=== PATIENT | female | born 1980 | race Caucasian/White ===

== ENCOUNTER → 2016-12-31 13:48 | Emergency (ER) | payer OTHER ==
[2016-12-31 13:52] VITALS: BP 124/76
--- NOTE | 2016-12-31 15:25 | ED ---
Lower Extremity - HPI Summary HPI Summary: 36F presents with left calf swelling for a day. 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 She feels a ball in her calf that she is concerned is a blood clot. She is not a smoker, no recent travel, surgeries , family history of blood clots. she denies any fever or spreading redness. She denies any trauma to the area. She denies any pain and she is able ambulate. - History of Current Complaint Chief Complaint: EDExtremityLower Stated Complaint: LEFT LEG INJURY Time Seen by Provider: 12/31/16 14:21 Pain Intensity: 0 - Allergies/Home Medications Allergies/Adverse Reactions: Allergies Allergy/AdvReac Type Severity Reaction Status Date / Time No Known Allergies Allergy Verified 12/31/16 13:55 PMH/Surg Hx/FS Hx/Imm Hx Endocrine/Hematology History: Denies: Hx Anticoagulant Therapy Cardiovascular History: Denies: Hx Hypertension Psychiatric History: Reports: Hx Depression Denies: Other Psychiatric Issues/Disorders - Pt's Father diagnosed w/ Schizophrenia Infectious Disease History: No Infectious Disease History: Denies: Traveled Outside the [place] in Last 30 Days - Family History Known Family History: Negative: Blood Disorder - Social History Alcohol Use: None Substance Use Type: Reports: None Smoking Status (MU): Never Smoked Tobacco Have You Smoked in the Last Year: No Review of Systems Negative: Fever Negative: Chest Pain Negative: Shortness Of Breath Positive: Edema - left calf All Other Systems Reviewed And Are Negative: Yes Physical Exam Triage Information Reviewed: Yes Vital Signs On Initial Exam: Initial Vitals Temp Pulse Resp BP Pulse Ox 97.9 F 69 16 124/76 100 12/31/16 13:51 12/31/16 13:51 12/31/16 13:51 12/31/16 13:51 12/31/16 13:51 Vital Signs Reviewed: Yes Appearance: Positive: Well-Appearing Skin: Positive: Warm, Dry Head/Face: Positive: Normal Head/Face Inspection Eyes: Positive: Normal, EOMI, Conjunctiva Clear Respiratory/Lung Sounds: Positive: Clear to Auscultation, Breath Sounds Present Cardiovascular: Positive: Normal, RRR Musculoskeletal: Positive: Strength/ROM Intact - left calf, Other - good pulses , small palpable mass felt in left calf that does not appear infectious, feels more like muscle Diagnostics - Vital Signs Vital Signs Temp Pulse Resp BP Pulse Ox 12/31/16 13:52 97.9 F 67 16 124/76 100 12/31/16 13:51 97.9 F 69 16 124/76 100 - Laboratory Lab Statement: Any lab studies that have been ordered have been reviewed, and results considered in the medical decision making process. - Ultrasound No standard instances Ultrasound Interpretation: Positive (See Comments) - IMPRESSION: SOFT TISSUE SWELLING, OTHERWISE UNREMARKABLE STUDY. IF THE PATIENT'S PALPABLE ABNORMALITY PERSISTS CONSIDER MR IMAGING. Ultrasound Interpretation Completed By: Radiologist Lower Extremity Course/Dx - Course Course Of Treatment: 36F presents with left calf swelling for a day. 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 She has no risk factors for DVT. she denies any fever or spreading redness. She denies any trauma to the area. on exam tight possible muscular mass felt with no rash or warmth to area so do not suspect infection. u/s shows no abscess or DVT. told to follow up with primary. patient understands and agrees with plan - Diagnoses Differential Diagnosis/HQI/PQRI: Positive: Cellulitis, DVT, Sprain, Strain Provider Diagnoses: Swelling of left lower extremity Discharge - Discharge Plan Condition: Good Disposition: HOME Referrals: No Primary Care Phys,NOPCP [Primary Care Provider] - Additional Instructions: Area is not infectious or a blood clot Apply ice and massage area Take ibuprofen for pain as needed Follow up with primary within 5 days if no improvement Return to ED if develop any new or worsening symptoms
--- NOTE | 2016-12-31 16:04 | RAD ---
INDICATION: Left calf mass. COMPARISON: There are no prior studies available for comparison. TECHNIQUE: Multiple real-time images of the left calf were obtained. FINDINGS: There is edema in the superficial soft tissues of the left calf. No mass or fluid collection is seen. IMPRESSION: SOFT TISSUE SWELLING, OTHERWISE UNREMARKABLE STUDY. IF THE PATIENT'S PALPABLE ABNORMALITY PERSISTS CONSIDER MR IMAGING.
== END | disposition home or self-care (01) ==
LOC: ED 13:48
DX: M79.89 Other specified soft tissue disorders (principal)
CPT/HCPCS: 99281

== ENCOUNTER 2019-01-11 06:00 | Inpatient (IN) | payer OTHER ==
[~2019-01-11 06:00] MED LIST: ceFOXitin(*) 2 GM in NS 0.9% 100 ML* 100 ML IVPB SCH
[2019-01-11] MEDS ORDERED: FLUID ONE (06:42)
[2019-01-11] MEDS ORDERED: NS 0.9% ONE (06:42)
[2019-01-11] MEDS ORDERED: Sodium Citrate/Citric Acid* 15 ML UDC PO ONE (06:56)
[2019-01-11] MEDS ORDERED: Buffered Lidocaine 1% SYRIN* 1 ML/SYRINGE INTRADERM ONE (06:56)
[2019-01-11] MEDS ORDERED: Lactated Ringers 1000 ML Bag* 1,000 ML IV SCH ×2 (07:00→10:00)
[2019-01-11] MEDS ORDERED: Morphine PF AMP (0.5MG/ML)* 5 MG/10 ML AMP ONE (07:11)
[2019-01-11] MEDS ORDERED: fentaNYL* 50 MCG/ML 2 ML VIAL (100 MCG VIAL) ONE ×2 (08:37→09:07)
[2019-01-11] MEDS ORDERED: Midazolam* 1 MG/ML 2 ML VIAL (2 MG) ONE (08:43)
[2019-01-11] MEDS ORDERED: Naloxone* 0.4 MG/ML 1 ML VIAL IV PRN ×2 (08:48)
[2019-01-11] MEDS ORDERED: oxyCODONE/Acetamin 5/325 MG* TAB PO PRN (08:48)
[2019-01-11] MEDS ORDERED: diPHENhydraMINE IV* 50 MG/ML 1 ml VIAL (BENADRYL) IV PRN (08:48)
[2019-01-11] MEDS ORDERED: Acetaminophen TAB* 325 MG PO PRN (08:48)
[2019-01-11] MEDS ORDERED: HYDROmorphone INJ1* 1 MG/ML SYRINGE IV PRN (08:48)
[2019-01-11] MEDS ORDERED: Nalbuphine* 10 MG/ML 1 ML VIAL IV PRN (08:48)
[2019-01-11] MEDS ORDERED: Ondansetron INJ* 2 MG/ML VIAL IV PRN (08:48)
[2019-01-11] MEDS ORDERED: fentaNYL* 50 MCG/ML 2 ML VIAL (100 MCG VIAL) IV PRN (08:48)
[2019-01-11] MEDS ORDERED: KETAMINE HCL* 50 MG/ML 10 ML VIAL ONE (08:56)
[2019-01-11] MEDS ORDERED: Propofol* 10 MG/ML 20 ML BTL ONE (09:03)
[2019-01-11] MEDS ORDERED: Witch Hazel PAD* JAR TOPICAL PRN (09:53)
[2019-01-11] MEDS ORDERED: RHO D Immune Globulin (HUMAN)* 300 MCG = 1,500 I.U. INJ IM ONE (09:53)
[2019-01-11] MEDS: Ketorolac INJ* 30 MG/ML 1 ML VIAL IV PRN ×2 (12:04→18:11)
[2019-01-11] MEDS: Simethicone TAB* 80 MG TAB.CHEW PO SCH ×3 (14:52→21:26)
[2019-01-11] MEDS: Docusate CAP* 100 MG PO SCH ×2 (14:53→21:26)
[2019-01-12] MEDS: Ketorolac INJ* 30 MG/ML 1 ML VIAL IV PRN ×2 (00:25→06:23)
[2019-01-12] MEDS ORDERED: oxyCODONE/Acetamin 5/325 MG* TAB PO PRN ×2 (01:00)
[2019-01-12 05:56] LABS: ABS Basophils 0.1 10^3/ul (0-0.2); ABS Eosinophils 0.1 10^3/ul (0-0.6); ABS Lymphocytes 1.3 10^3/ul (1.0-4.8); ABS Monocytes 0.8 10^3/ul (0-0.8); ABS Neutrophils 12.2 10^3/ul (1.5-7.7); Eosinophil % 0.6 %; Hematocrit 33 % (35-47); Lymphocyte % 9.1 %; Mean Corpuscular HGB Conc 34 g/dL (31-36); Mean Corpuscular Hemoglobin 32 pg (27-31); Mean Corpuscular Volume 94 fL (80-97); Mean Platelet Volume 9.7 fL (7.4-10.4); Platelet Count 157 10^3/uL (150-450); Red Blood Count 3.48 10^6 /uL (3.70-4.87); Red Cell Distribution Width 13 % (10-15); White Blood Count 14.4 10^3/uL (3.5-10.8)
[2019-01-12] MEDS: Docusate CAP* 100 MG PO SCH ×3 (08:58→21:23)
[2019-01-12] MEDS: Simethicone TAB* 80 MG TAB.CHEW PO SCH ×4 (08:58→21:23)
[2019-01-12] MEDS ORDERED: Ferrous Gluconate TAB* 324 MG TAB PO SCH (09:00)
--- NOTE | 2019-01-12 10:09 | OP ---
DATE OF OPERATION: 01/11/19 - ROOM #105 DATE OF : 80 SURGEON: Donnie Cuevas MD [facility] ARTIST: Meg Ren CNM ANESTHESIOLOGIST: Dr. Castanon. ANESTHESIA: Spinal. PRE-OP DIAGNOSES: Thirty nine plus one week gestation with history of previous C- section and satisfied parity. POST-OP DIAGNOSES: Thirty nine plus one week gestation with history of previous C- section and satisfied parity. OPERATIVE PROCEDURE: Repeat low transverse section and bilateral tubal ligation. ESTIMATED BLOOD LOSS: 600 cc. URINE OUTPUT: 1100 cc. IV FLUIDS: 1300 cc lactated Ringer's. MATERIALS TO LAB: Cord blood. INDICATIONS: This patient is a 38-year-old 3 para 2 who presented today for repeat section. The patient also had expressed a strong desire for permanent sterilization, so bilateral tubal ligation was also planned. She was extensively counseled and consent was signed. FINDINGS: Normal appearing uterus, fallopian tubes and ovaries. Delivery was productive of a female weighing 6 pounds 11 ounces with Apgars 9 and 9. Time of delivery was 0842. COMPLICATIONS: None. DESCRIPTION OF PROCEDURE: The risks, benefits, and alternatives were described to the patient, and informed consent was obtained. The patient was taken to the operating room with IV running, where spinal anesthesia was induced and found to be adequate. The patient was prepped and draped in normal sterile fashion in the dorsal supine position with a leftward tilt. A Pfannenstiel skin incision was made with a scalpel through the patient's previous incision. This was carried down to the underlying fascia using the scalpel. The fascia was scored in the midline, and the incision was extended using Joseph scissors. The fascia was dissected off the underlying rectus muscles using blunt and sharp dissection. The rectus muscles were in the midline using dissection with a Paloma clamp. The peritoneum was then entered sharply. A bladder blade was placed. A bladder flap was created sharply using Metzenbaum scissors. A low transverse uterine incision was then made with the scalpel. This was carried down to the amniotic membranes. The membranes were then ruptured, productive of clear fluid. The uterine incision was extended using blunt traction. The head was elevated to the level of the incision, and, with fundal pressure, the head delivered without difficulty. The shoulders then were also both delivered and the body followed. The infant had excellent tone and cried immediately on delivery. The cord was doubly clamped and cut. The was then handed to the awaiting deputy juvenile officer. Cord blood was collected. The placenta was delivered with manual extraction. The uterus was then exteriorized and cleared of all clots and debris. The uterine incision was then reapproximated using 0 Vicryl in a running-locked fashion. A second layer of imbricating 0 Vicryl sutures was then also placed for good hemostasis. The posterior cul-de-sac was irrigated with saline. The right Fallopian tube was then elevated with a Peggy clamp and a long Paloma clamp was used to clamp off the distal half of the tube. This was tied off with 3-0 Vicryl. A second 3-0 Vicryl suture was then also placed. The tube segment was then excised with Metzenbaum scissors with good hemostasis. The same was performed on the left, again with good hemostasis. The uterus was then returned to the abdomen. The incision was reinspected and still noted to be hemostatic. The peritoneum was closed with 3-0 Vicryl in a running fashion. The fascia was closed with 0 Vicryl in a running fashion. The subcutaneous tissues were copiously irrigated and made hemostatic using the Bovie. The subcutaneous tissues were then reapproximated using 3-0 Vicryl in interrupted sutures. The skin was then closed with 4-0 Monocryl in a subcuticular stitch. Mastisol and steristrips were then applied. A sterile bandage was then placed over the incision. The patient tolerated the procedure well. Sponge, lap, and needle counts were correct x2. [id number]/[facility] #: [id number] [facility]
[2019-01-12] MEDS: Ibuprofen TAB* 600 MG PO PRN ×2 (12:25→18:10)
[2019-01-12] MEDS: Acetaminophen TAB* 325 MG PO PRN (19:23)
[2019-01-13] MEDS: Acetaminophen TAB* 325 MG PO PRN ×3 (00:11→19:28)
[2019-01-13] MEDS: Ibuprofen TAB* 600 MG PO PRN ×4 (00:11→19:28)
[2019-01-13] MEDS: Simethicone TAB* 80 MG TAB.CHEW PO SCH ×4 (09:05→21:45)
[2019-01-13] MEDS: Docusate CAP* 100 MG PO SCH ×3 (09:05→21:45)
[2019-01-14] MEDS: Acetaminophen TAB* 325 MG PO PRN (03:06)
[2019-01-14] MEDS: Ibuprofen TAB* 600 MG PO PRN ×2 (03:07→10:21)
[2019-01-14] MEDS: Simethicone TAB* 80 MG TAB.CHEW PO SCH (07:44)
[2019-01-14] MEDS: Docusate CAP* 100 MG PO SCH (07:44)
[2019-01-14 08:14] VITALS: BP 115/77
== END 2019-01-14 12:00 | disposition home or self-care (01) | DRG 540 ==
LOC: MCHOB 06:00
PROVIDERS: ADMIT Obstetrics & Gynecology; ATTEND Obstetrics & Gynecology
PROC: 0UB70ZZ Excision of Bilateral Fallopian Tubes, Open Approach (ICD-10-PCS; 2019-01-11)
PROC: 10D00Z1 Extraction of Products of Conception, Low, Open Approach (ICD-10-PCS; principal; 2019-01-11 07:45)
DX: O34.211 Maternal care for low transverse scar from previous cesarean delivery (principal); Z3A.39 39 weeks gestation of pregnancy; Z37.0 Single live birth; Z30.2 Encounter for sterilization
CPT/HCPCS: 36415; 85025; 85461; 86900; 86901; 88302; A9270-GY; J0694; J1885; J2250; J2704; J2790; J3010